=== PATIENT | male | born 1940 | race Caucasian/White ===

== ENCOUNTER 2021-08-11 13:52 | Emergency (ER) | payer MEDICARE, SELFPAY ==
[2021-08-11] VITALS (28 sets, daily range): BP systolic 149–203; BP diastolic 86–110; PULSE 82–113; RESP 7–24; TEMP 36.7–36.8; O2SAT 95–100
--- NOTE | ~2021-08-11 | CT_ITS ---
EXAMINATION: CT abdomen pelvis w con INDICATION: Abdominal pain TECHNIQUE: Computed tomographic images of the abdomen and pelvis were obtained after the administrati on of 100 cc of Omnipaque 350 intravenous contrast. The dose-length product (DLP) was 452.70 mGy-cm. Automated exposure control and iterative reconstruction technique were employed. COMPARISON: 03/30/2018 FINDINGS: The lung bases are clear. The heart size is normal. There is a small sliding hiatal hernia. Again noted is a pericardial cyst along the left posterolateral heart border. The gallbladder is radha gically absent. There is mild intrahepatic and extrahepatic biliary dilatation. The liver is normal. Punctate calcifications in an otherwise normal spleen likely represent healed granulomatous disease. The pancreas is normal. There is an 11 mm adenoma of the right adrenal gland. The left adrenal gland is unremarkable. Peripelvic cysts are noted in the kidneys. Parenchymal cysts of the kidneys measure up to 2 cm on the right. There is calcified atherosclerosis of the aorta and many of the other arteri es. No pathologically enlarged abdominal or pelvic lymph nodes are identified. There is no free intra peritoneal gas or evidence of bowel obstruction. Colonic diverticulosis is present without evidence o f diverticulitis. There is a left inguinal hernia containing fat. An intramuscular lipoma is noted in the left abdominal wall. The appendix is normal. IMPRESSION: 1. Mild intrahepatic and extrahepatic biliary dilatation, new since the prior examination but could b e related to post cholecystectomy state given relatively normal liver function tests. Reviewed, dictated and finalized at location F. CAID SERVICE COORDINATOR IMPRESSION: 1. Mild intrahepatic and extrahepatic biliary dilatation, new since the prior e xamination but could be related to post cholecystectomy state given relatively normal liver function tests.
--- NOTE | 2021-08-11 14:48 | PC.NURSE ---
PT. requesting to sit outside. Pt. placed in wheel chair and with in view.
--- NOTE | 2021-08-11 15:35 | ED.ABDPAIN ---
HPI - Abdominal Pain General Chief Complaint: Abdominal Pain Stated Complaint: ABD pain Time Seen by Provider: 08/11/21 15:23 History of Present Illness HPI narrative: 80-year-old male with history of cholecystectomy presented to the emergency department for evaluation of 2 days of nausea and diarrhea. Patient also has associated mid abdominal pain. Patient states he has had decreased p.o. intake due to the presence of nausea. Patient states his diarrhea has been nonbloody. Patient states that the abdominal pain is more mid abdominal pain. Patient denies any prior history of similar abdominal pain. Patient states he did have his gallbladder out but is unsure of why he had to have this happen. Patient denies daily alcohol use and denies any prior history of pancreatitis. Related Data Home Medications Medication Instructions Recorded Confirmed aspirin 81 mg tablet,delayed 81 mg PO DAILY 07/03/19 06/28/21 release atorvastatin 80 mg tablet 80 mg PO DAILY 07/03/19 06/28/21 clopidogrel 75 mg tablet 75 mg PO DAILY 07/03/19 06/28/21 diclofenac sodium 75 mg 75 mg PO BID PRN 07/03/19 06/28/21 tablet,delayed release gabapentin 600 mg tablet 600 mg PO TID 07/03/19 06/28/21 lisinopril 10 mg tablet 10 mg PO DAILY 07/03/19 06/28/21 metoprolol succinate 25 mg 12.5 mg PO DAILY tablet 07/03/19 06/28/21 tablet,extended release 24 hr omeprazole 20 mg capsule,delayed 20 mg PO DAILY 07/03/19 06/28/21 release finasteride 5 mg tablet 5 mg PO DAILY 01/10/20 06/28/21 tamsulosin 0.4 mg capsule 0.4 mg PO DAILY 01/10/20 06/28/21 Allergies Allergy/AdvReac Type Severity Reaction Status Date / Time Penicillins Allergy Severe turns red Verified 06/28/21 14:54 morphine Allergy Mild Vomiting Verified 06/28/21 14:54 ticagrelor Allergy Mild rash Verified 06/28/21 14:54 Review of Systems Review of Systems: CONSTITUTIONAL: Denies fever, chills, or sweats. EYES: Denies visual changes, redness, or discharge. ENT: Denies rhinorrhea, congestion, sore throat, or otalgia. CARDIOVASCULAR: Denies chest pain, palpitations, or edema. RESPIRATORY: Denies cough or dyspnea. GASTROINTESTINAL: Mid and epigastric abdominal pain with associated nausea and diarrhea. Patient also reports decreased p.o. intake GENITOURINARY: Denies dysuria or hematuria. SKIN: Denies rash or itching. MUSCULOSKELETAL: Denies back pain, joint pain, or myalgia. NEUROLOGIC: Denies headache, numbness, or weakness. PSYCHIATRIC: Denies anxiety or depression. [facility] Family History Family History Sibling Family history of malignant neoplasm of gastrointestinal tract Patient's brother is Carcinoma of colon Family history of malignant neoplasm of kidney Social History Social History Smoking status: Former smoker Second hand tobacco smoke exposure: No Smoking end date: 07/31/85 Alcohol intake: never Exam Narrative: APPEARANCE: Well appearing, no pain in distress, well-nourished. HEAD: normocephalic, atraumatic. NECK: Supple. No adenopathy, no masses. RESPIRATORY: Airway patent, respirations nonlabored. Clear to auscultation bilaterally, no rales, rhonchi, wheezing. CARDIOVASCULAR: Regular rate and rhythm without murmurs rubs or gallops. ABDOMINAL: Mid and epigastric tenderness to palpation. Normal bowel sounds. MUSCULOSKELETAL: Moves all extremities. Strength/ROM intact, No edema, No calf tenderness. NEURO: Alert. Cranial nerves II through XII intact. Good gait. Good coordination SKIN: Warm, dry. Normal Color PSYCHIATRIC: Normal affect/mood. Course Course Emergency Course: 80-year-old male presented emerged part for evaluation of abdominal pain. Labs were ordered including a lipase. Fluids were ordered for rehydration due to the patient's tachycardia. CT abdomen pelvis is also being ordered. Patient did request medications for pain control. Patient was
[2021-08-11] MEDS: SODIUM CHLORIDE 0.9% IV 1,000 ML 999 ML IV CONT (15:39)
[2021-08-11] MEDS: HYDROmorphone HCL INJ (*CRX) 1 MG/ML SYR 0.5 MG IV PUSH (15:41)
[2021-08-11] MEDS: ONDANSETRON INJ 4 MG/2 ML VIAL IV PUSH (15:41)
[2021-08-11 15:52] LABS: Basophils Absolute Auto 0.1 K/mm3 (0.0-0.1); Basophils Percent Auto 0.4 % (0.2-1.2); Eosinophils Percent Auto 0.1 % (0-4.4); Hematocrit 50.5 % (42.0-52.0); Hemoglobin 17.9 g/dL (14.0-18.0); Immature Granulocyte Absolute 0.07 K/mm3 (0.00-0.031); Immature Granulocyte Percent A 0.4 % (0-0.5); Lymphocytes Absolute Auto 2.87 K/mm3 (0.9-3.2); Lymphocytes Percent Auto 15.9 % (18.3-44.2); Mean Corpuscular HGB Conc 35.4 g/dl (32-36); Mean Corpuscular Hemoglobin 30.5 pg (26-34); Mean Platelet Volume 10.8 fl (7.4-10.4); Monocytes Absolute Auto 1.3 K/mm3 (0.1-0.6); Monocytes Percent Auto 7.3 % (2.6-8.5); Neutrophils Absolute Auto 13.8 K/mm3 (1.3-6.7); Neutrophils Percent Auto 75.9 % (45.5-73.1); Platelet Count Result 311 k/mm3 (150-375); Red Blood Count 5.87 M/mm3 (4.6-6.20); Red Cell Distribution Width 12.6 % (11.5-14.5); White Blood Count 18.1 K/mm3 (4.5-10.0)
[2021-08-11 16:12] LABS: Lipase 56 U/L (23-300)
[2021-08-11 16:13] LABS: Lactic Acid Reflex 2.6 mmol/L (0.7-2.1)
[2021-08-11 16:23] LABS: Alanine Aminotransferase 41 U/L (4-50); Alkaline Phosphatase 115 U/L (38-126); Anion Gap 16 mmol/L (8-16); Aspartate Amino Transferase 87 U/L (17-59); Bilirubin,Total 1.1 mg/dL (0.2-1.3); Blood Urea Nitrogen 17 mg/dL (9-20); Calcium 10.8 mg/dL (8.4-10.2); Carbon Dioxide 22 mmol/L (22-30); Chloride 105 mmol/L (98-107); Estimated CRCL calculation 46 ml/min; Estimated Glomerular Filt Rate 53; Glucose 133 mg/dL (65-110); Potassium 3.5 mmol/L (3.4-5.0); Sodium 143 mmol/L (137-145)
[2021-08-11] MEDS: PANTOPRAZOLE SODIUM IV 40 MG VIAL IV PUSH (17:29)
[2021-08-11] MEDS: lisinopriL 10 MG TABLET PO (18:27)
[2021-08-11] MEDS: METOPROLOL SUCCINATE EXT REL 12.5 MG TABCR PO (18:27)
[2021-08-11 18:49] LABS: Reflex Lactic Acid Yes or No Add Lactic
--- NOTE | 2021-08-14 11:43 | PC.NURSE ---
LATE ENTRY This note is being entered to document information to the patient's record. The following information was omitted on [08/11/21], by [jenn pantoja]. NS start at 1539 ended 163
== END 2021-08-11 18:45 | disposition home or self-care (01) ==
PROVIDERS: Emergency Provider Emergency Medicine; PCP Internal Medicine
DX: R19.7 Diarrhea, unspecified (principal); R11.0 Nausea; Z79.82 Long term (current) use of aspirin; Z87.891 Personal history of nicotine dependence
CPT/HCPCS: 36415; 74177; 80053; 83605; 83690; 85025; 96361; 96374; 96375; 99284; A9270; C9113; J1170; J2405; J7030; Q9967

== ENCOUNTER 2021-08-12 12:31 | Outpatient (CLI) | payer MEDICARE, SELFPAY ==
[2021-08-12 12:57] LABS: Add Urine Microscopic? YES; Appearance Urine Clear (Clear); Bacteria Urine Trace /hpf; Bilirubin Urine Negative (Negative); Blood Urine 1+ (Negative); Color Urine Yellow (Yellow); Glucose Urine UA 1+ mg/dL (Negative); Ketones Urine 1+ mg/dL (Negative); Leukocyte Esterase Ur Negative LEU/UL (NEGATIVE); Mucus Urine Heavy /lpf; Nitrate Urine Negative (Negative); Protein Urine 2+ mg/dL (Negative); Squamous Epithelial Cell Urine Rare /hpf (Few); WBC Urine 0-3 /hpf (0-3)
[2021-08-12 13:14] LABS: Specific Grav Ur 1.033 (1.001-1.035)
== END 2021-08-12 12:32 | disposition home or self-care (01) ==
LOC: ANHLAB 12:35
PROVIDERS: PCP Internal Medicine; Visit Provider Physician Assistant
DX: R41.82 Altered mental status, unspecified (principal)
CPT/HCPCS: 81001; 87086; 87088

== ENCOUNTER 2021-08-13 11:32 | Observation (INO) | payer MEDICARE, SELFPAY ==
[2021-08-13] VITALS (38 sets, daily range): BP systolic 162–192; BP diastolic 83–108; PULSE 77–120; RESP 6–23; TEMP 37–37.1; O2SAT 97–100; BMI 29.2
--- NOTE | ~2021-08-13 | CT_ITS ---
EXAMINATION: CT abdomen pelvis w con DATE: 08/13/2021 14:28 INDICATION: Acute pancreatitis. TECHNIQUE: Computed tomography (CT) of the abdomen and pelvis was performed with 100 mL Omnipaque 350 intravenous contrast. Automated exposure control and iterative reconstruction technique were employe d. The dose-length product was 500.78 mGy-cm. COMPARISON: CT abdomen and pelvis 08/11/2021 FINDINGS: The visualized portions of the lung bases are clear without pneumonia or pleural effusion. The heart size is normal. There are coronary artery calcifications. No pericardial effusion. There is a small sliding hiatal hernia. There is mild intrahepatic biliary duct dilatation, likely secondary to cholecystectomy. The pancreas, spleen, and adrenal glands are normal. There are peripelvic cysts i n the kidneys measuring up to 3.6 cm on the left. There is cortical thinning of the kidneys. There is an intramuscular lipoma in left lateral abdominal wall. There is an umbilical hernia containing fat. The prostate is moderately enlarged. There is a left inguinal hernia containing fat. There is divert iculosis of the colon without evidence of diverticulitis. The appendix is normal. There are no pathol ogically enlarged lymph nodes. There is no free intraperitoneal fluid. There are benign bone islands in the pelvis. There is mild lumbar spondylosis. IMPRESSION: 1. Normal pancreas. Reviewed, dictated and finalized at location B. ACTORY TECHNICIAN IMPRESSION: 1. Normal pancreas.
--- NOTE | ~2021-08-13 | MR_ITS ---
EXAMINATION: MR brain/brain stem wo/w con EXAM DATE: 08/14/2021 13:03 INDICATION: Confusion. TECHNIQUE: Magnetic resonance imaging (MRI) of the brain/brain stem obtained without contrast. Sagit rocco T1, axial diffusion, gradient echo (T2*), T1, T2, FLAIR sequences obtained. Patient was then inj ected with 18 cc intravenous Multihance contrast. Axial and coronal postcontrast T1 weighted sequence s obtained. Comparison is made to prior examination from 06/01/2014. FINDINGS: There are no areas of restricted diffusion to suggest acute infarction. There is no acute hemorrhage seen on the T2*, a hemosiderin sensitive sequence. No intraparenchymal brain mass lesion. Multiple right parietal lobe infarction medially. There is mild periventricular and subcortical T2 /FLAIR signal hyperintensity, nonspecific but probably related to small vessel ischemic disease (micr oangiopathy). There is mild prominence of the sulci and ventricles related to cerebral atrophy. T here are no extra-axial collections. Flow voids are seen in the cerebral arteries on the T2-weighted sequences consistent with their expected patency. The orbits are unremarkable. Soft tissue is unre markable. There are no areas of abnormal enhancement on the postcontrast images. Small right maxilla ry sinus mucous retention cyst. IMPRESSION: 1. No acute intracranial findings. 2. Chronic age related findings. 3. 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 Reviewed, dictated and finalized at location G. ORT DIRECTOR
--- NOTE | ~2021-08-13 | CT_ITS ---
EXAMINATION: CT brain wo con DATE: 08/13/2021 12:32 INDICATION: Confusion. Altered mental status. TECHNIQUE: Computed tomography (CT) of the head was performed without intravenous contrast. The mA wa s adjusted according to patient size. Iterative reconstruction technique was employed. The dose-lengt h product was 681.00 mGy-cm. COMPARISON: Head CT 02/23/2013, brain MRI 06/01/2014 FINDINGS: There are scattered areas of low attenuation in the cerebral white matter, which is within normal limits for the patient's age. There is no intracranial hemorrhage, acute infarction, or abnorm al intracranial mass lesion. The ventricles are normal in size. The orbits are normal. There is mild mucosal thickening in the paranasal sinuses. The mastoid air cells are normal. IMPRESSION: 1. Normal aging brain. Reviewed, dictated and finalized at location B. SERVICE SALES REPRESENTATIVES IMPRESSION: 1. Normal aging brain.
--- NOTE | ~2021-08-13 | US_ITS ---
EXAMINATION: US carotid duplex BI DATE: 08/13/2021 17:52 INDICATION: Confusion TECHNIQUE: Grayscale, color Doppler, and pulsed Doppler images of the cervical carotid arteries were obtained. The degree of vessel stenosis is placed in one of the following categories: normal, <50%, 5 0-69%, >=70% but less than near-occlusion, near-occlusion, or total occlusion. Note that percent sten osis relative to normal distal artery lumen diameter is indirectly measured from velocity measurement s as described by Home, et al. Radiology 2003; [id number]:340-346. COMPARISON: 10/11/2013 FINDINGS: RIGHT: The right common carotid artery (CCA) peak systolic velocity (PSV) is 88 cm/s. The right internal car otid artery (ICA) PSV is 102 cm/s. The right ICA end-diastolic velocity (EDV) is 17 cm/s. The right I CA/CCA PSV ratio is 1.2. Grayscale and color Doppler images yield an estimate of less than 50% diamet er reduction from plaque in the ICA. The external carotid artery (ECA) PSV is 135 cm/s. There is ante grade flow in the right vertebral artery. LEFT: The left CCA PSV is 93 cm/s. The left ICA PSV is 99 cm/s. The left ICA EDV is 24 cm/s. The left ICA/C CA PSV ratio is 1.1. Grayscale and color Doppler images yield an estimate of 50% diameter reduction f rom plaque in the ICA. The ECA PSV is 148 cm/s. There is antegrade flow in the left vertebral artery. IMPRESSION: 1. <50% stenosis in the right internal carotid artery. 2. <50% stenosis in the left internal carotid artery. Reviewed, dictated and finalized at location F. EXTINGUISHER REPAIRER INSPECTOR
--- NOTE | 2021-08-13 11:53 | ECG_ITS ---
Measurements Intervals [place] Rate: 91 P: 52 [place]: 100 QRS: 30 QRSD: 88 T: -6 QT: 373 QTc: 461 Interpretive Statements SINUS RHYTHM WITH SHORT [place] INTERVAL ATRIAL PREMATURE COMPLEXES EARLY PRECORDIAL R/S TRANSITION ST-T WAVE ABNORMALITY IN INFERIOR LEADS- CONSIDER ISCHEMIA BASELINE ARTIFACT- II, III, AVR, AVL, AVF, V2-V6 ABNORMAL ECG Electronically Signed On 08-13-2021 12:52:43 SHIPYARD HELPER by Delvin Schrader D.O.
[2021-08-13 12:01] LABS: Basophils Absolute Auto 0.1 K/mm3 (0.0-0.1); Basophils Percent Auto 0.6 % (0.2-1.2); Eosinophils Absolute Auto 0.1 K/mm3 (0-0.3); Eosinophils Percent Auto 0.5 % (0-4.4); Hematocrit 49.1 % (42.0-52.0); Hemoglobin 17.2 g/dL (14.0-18.0); Immature Granulocyte Absolute 0.03 K/mm3 (0.00-0.031); Immature Granulocyte Percent A 0.2 % (0-0.5); Lymphocytes Absolute Auto 2.18 K/mm3 (0.9-3.2); Lymphocytes Percent Auto 17.1 % (18.3-44.2); Mean Corpuscular Hemoglobin 30.7 pg (26-34); Mean Corpuscular Volume 87.5 fl (80-100); Mean Platelet Volume 10.4 fl (7.4-10.4); Monocytes Absolute Auto 0.8 K/mm3 (0.1-0.6); Monocytes Percent Auto 6.2 % (2.6-8.5); Neutrophils Absolute Auto 9.6 K/mm3 (1.3-6.7); Neutrophils Percent Auto 75.4 % (45.5-73.1); Platelet Count Result 246 k/mm3 (150-375); Red Blood Count 5.61 M/mm3 (4.6-6.20); Red Cell Distribution Width 12.9 % (11.5-14.5); White Blood Count 12.7 K/mm3 (4.5-10.0)
[2021-08-13 12:15] LABS: Alanine Aminotransferase 42 U/L (4-50); Albumin Level 4.5 g/dL (3.5-5.1); Alkaline Phosphatase 102 U/L (38-126); Anion Gap 12 mmol/L (8-16); Aspartate Amino Transferase 50 U/L (17-59); Bilirubin,Total 1.1 mg/dL (0.2-1.3); Blood Urea Nitrogen 19 mg/dL (9-20); Calcium 9.8 mg/dL (8.4-10.2); Carbon Dioxide 25 mmol/L (22-30); Chloride 104 mmol/L (98-107); Estimated CRCL calculation 45 ml/min; Estimated Glomerular Filt Rate 59; Glucose 124 mg/dL (65-110); Partial Thromboplastin Time 27.8 SECONDS (22.3-36.8); Potassium 3.2 mmol/L (3.4-5.0); Sodium 141 mmol/L (137-145)
--- NOTE | 2021-08-13 12:31 | ED.AMS ---
HPI - Altered Mental Status General Chief Complaint: Altered Mental Status Stated Complaint: Confusion Time Seen by Provider: 08/13/21 12:14 History of Present Illness HPI narrative: 80-year-old male present to the emergency room for evaluation of altered mental status. Patient was evaluated in the emergency department yesterday for multiple days of diarrhea and decreased p.o. intake. Patient had a negative work-up yesterday and stated he felt improved and was requesting discharge to home. Patient was brought back to the emergency department due to abnormal behavior overnight where he urinated on the floor. Grandson states that the patient's home is very disheveled and there is feces around the house. Grandson states that the patient is typically compliant with his medications but that he typically has a very poor diet. Grandson states that his diet is worse now and that he is now noncompliant with his medications for the past week. Family states that the patient is unable to take care of himself at home and they state that they are unable to care for him in their home. Patient's only complaint at this time is epigastric abdominal pain. I was the physician caring for the patient yesterday. Patient did recognize me when I walked into the room. Related Data Home Medications Medication Instructions Recorded Confirmed aspirin 81 mg tablet,delayed 81 mg PO DAILY 07/03/19 06/28/21 release atorvastatin 80 mg tablet 80 mg PO DAILY 07/03/19 06/28/21 clopidogrel 75 mg tablet 75 mg PO DAILY 07/03/19 06/28/21 diclofenac sodium 75 mg 75 mg PO BID PRN 07/03/19 06/28/21 tablet,delayed release gabapentin 600 mg tablet 600 mg PO TID 07/03/19 06/28/21 lisinopril 10 mg tablet 10 mg PO DAILY 07/03/19 06/28/21 metoprolol succinate 25 mg 12.5 mg PO DAILY tablet 07/03/19 06/28/21 tablet,extended release 24 hr omeprazole 20 mg capsule,delayed 20 mg PO DAILY 07/03/19 06/28/21 release finasteride 5 mg tablet 5 mg PO DAILY 01/10/20 06/28/21 tamsulosin 0.4 mg capsule 0.4 mg PO DAILY 01/10/20 06/28/21 Allergies Allergy/AdvReac Type Severity Reaction Status Date / Time Penicillins Allergy Severe turns red Verified 01/14/22 11:49 morphine Allergy Mild Vomiting Verified 08/13/21 11:49 ticagrelor Allergy Mild rash Verified 08/13/21 11:49 Review of Systems Review of Systems: CONSTITUTIONAL: Denies fever, chills, or sweats. EYES: Denies visual changes, redness, or discharge. ENT: Denies rhinorrhea, congestion, sore throat, or otalgia. CARDIOVASCULAR: Denies chest pain, palpitations, or edema. RESPIRATORY: Denies cough or dyspnea. GASTROINTESTINAL: Intermittent diarrhea and epigastric abdominal pain GENITOURINARY: Denies dysuria or hematuria. SKIN: Denies rash or itching. MUSCULOSKELETAL: Denies back pain, joint pain, or myalgia. NEUROLOGIC: Denies headache, numbness, or weakness. PSYCHIATRIC: Family reports increased confusion PMFSH Past Medical History Medical History (Updated 08/13/21 @ 18:54 by Pranay Lynn MD) BPH (benign prostatic hyperplasia) Depression Essential (primary) hypertension Hyperlipidemia Neuropathy Surgical History Surgical History (Updated 08/13/21 @ 14:11 by Isamar Muir NP) Hx laparoscopic cholecystectomy Hx of heart artery stent Family History Family History Sibling Family history of malignant neoplasm of gastrointestinal tract Patient's brother is Carcinoma of colon Family history of malignant neoplasm of kidney Social History Social History (Updated 08/13/21 @ 17:03 by Isamar Muir NP) Social History: The patient stated that he is . He stated that he had 1 daughter that . He lives Alone. He quit smoking 30 years ago. He admits to using marijuana. He is retired from the [employer]. During our conversation he stated that his son is calling however he could not tell me how many other children he had.
[2021-08-13 13:24] LABS: Lactic Acid Reflex 1.2 mmol/L (0.7-2.1)
[2021-08-13] MEDS: BELLADONNA ALK/PHENOB ELIX 10 ML, MAG HYDROX/ALUMINUM HYD/SIMETH 30 ML, LIDOCAINE HCL 2... PO (13:32)
[2021-08-13] MEDS: SODIUM CHLORIDE 0.9% IV 1,000 ML 999 ML IV CONT ×2 (13:33→13:53)
[2021-08-13 13:36] LABS: Lipase 1057 U/L (23-300)
--- NOTE | 2021-08-13 14:08 | PM.IMHP ---
H&P: HPI History of Present Illness Date/Time: 08/13/21 14:08 this is a 80-year-old male patient who came to the emergency room today for evaluation of altered mental status. The patient had been in the emergency room here yesterday due to having diarrhea for multiple days and decreased oral intake. The patient had a negative workup yesterday and felt that his symptoms had improved and was requesting to go home yesterday. Patient was brought back to the emergency room due to his abnormal behavior overnight. The patient had been urinating on the floor. The patient is unable to answer any questions. The grandson stated that the patient's home was very disarray and there was feces found on the floor at the patient's house. The patient has had a poor appetite in and is questionable whether the patient has been taking his medications. When I am asking the patient history questions he keeps telling me that he does not recall he does not remember. The patient is also very hard of hearing. He is having difficulty hearing me through the admission process. The patient started crying during the interview talking about how his daughter 2 years ago and his 10 years ago. The patient does have a history of depression however is questionable whether not the patient has been taking his medication at home. The patient is not aware of which medications he is on or when he is supposed to take them. His white count was noted to be 12.7 which is down from 18.1 two days ago. The patient has been complaining of having some right upper quadrant discomfort and has a history of having a cholecystectomy. Patient denies any nausea vomiting. The patient admits to smoking marijuana and states that he wishes he had some right now. Patient's lipase was noted to be 1057. Patient's COVID swab was negative today. Head CT shows a normal aging brain. Repeat abdominal pelvis CT was read as normal pancreas. The patient was given a GI cocktail which offered some relief. Patient was started on IV fluids. The patient is being admitted to observation on the date of service of 08/13/2021. Chief Complaint: confused Review of Systems Review of Systems: All systems reviewed & are unremarkable except as noted in HPI and below Constitutional: Constitutional: Reports as per HPI and Reports no additional constitutional complaints Eyes: Eyes: Reports as per HPI and Reports no additional eye complaints ENT: Reports system reviewed and no additional complaints, except as documented and Reports Normal hearing present Cardiovascular: Cardiovascular: Reports no additional cardiovascular complaints Respiratory: Respiratory: Reports no additional respiratory complaints and Reports no additional respiratory complaints Gastrointestinal: Gastrointestinal: Reports as per HPI and Reports no additional gastrointestinal complaints Musculoskeletal: Musculoskeletal: Reports no additional musculoskeletal complaints Integumentary/Breasts: Skin/Breast: Reports system reviewed and no additional complaints, except as docu and Reports as per HPI Neurologic: Reports system reviewed and no additional complaints, except as documented, Reports as per HPI and Reports Normal hearing present Psychiatric: Psychiatric: Reports no additional psychiatric complaints and Reports as per HPI Endocrine: Endocrine: Reports no additional endocrine complaints Hematologic/Lymphatic: Hematologic/Lymphatic: Reports no additional hematologic/lymphatic complaints Allergic/Immunologic: Allergic/Immunologic: Reports no additional allergic/immunologic complaints PMFSH Past Medical History Medical History (Updated 08/13/21 @ 17:16 by Isamar Muir NP) BPH (benign prostatic hyperplasia) Depression Essential (primary) hypertension Hyperlipidemia Neuropathy Surgical History Surgical History (Updated 08/13/21 @ 14:11 by Isamar Muir NP) Hx laparoscopic cholecystectomy Hx of heart artery stent
[2021-08-13 15:29] LABS: SARS-CoV-2 RNA PCR Negative
[2021-08-13 16:02] LABS: Add Urine Microscopic? YES; Appearance Urine Clear (Clear); Bilirubin Urine Negative (Negative); Blood Urine 1+ (Negative); Color Urine Yellow (Yellow); Glucose Urine UA 1+ mg/dL (Negative); Ketones Urine 1+ mg/dL (Negative); Leukocyte Esterase Ur Negative LEU/UL (Negative); Mucus Urine Rare /lpf; Nitrate Urine Negative (Negative); Protein Urine Negative (Negative); RBC Urine 0-2 /hpf (0-2); Squamous Epithelial Cell Urine Rare /hpf (Few); Urobilinogen Urine Negative mg/dL (<2.0); WBC Urine 0-3 /hpf
[2021-08-13 17:09] LABS: Amphetamine Screen Urine Negative (Negative); Barbiturate Screen Urine Negative (Negative); Benzodiazepines Screen Urine Negative (Negative); Cannabinoid Screen Urine Positive (Negative); Cocaine Screen Urine Negative (Negative); Methadone Screen Urine Negative (Negative); Opiate Screen Urine Negative (Negative); Phencyclidine Screen Urine Negative (Negative)
--- NOTE | 2021-08-13 18:00 | PC.NURSE ---
bp trending high. pt states has not taken his home meds in 2-3 days. meds ordered per verbal order from dr. weber
[2021-08-13] MEDS: lisinopriL 20 MG TABLET PO (18:15)
--- NOTE | 2021-08-13 18:53 | PC.NURSE ---
This patient, Gustavo Don, was admitted to Medical Room 244-. Patient/family oriented to hospital policies and general routines including ID bracelet, bed and alarms, visiting hours, pain management, procedures, bathroom and other care routines, personal items, smoking policy, room service/diet, and visiting hours. Information on how to activate the Rapid Response Team has been discussed. Patient/Family are encouraged to report perceived risks to care and to ask questions if they do not understand what they are told or what they should do.
[2021-08-13] MEDS: SODIUM CHLORIDE 0.9% IV 1,000 ML 125 ML IV CONT (19:00)
[2021-08-13] MEDS: FAMOTIDINE 20 MG/2 ML VIAL IV PUSH (19:40)
[2021-08-13] MEDS: METOPROLOL TARTRATE 12.5 MG TABLET PO (19:40)
[2021-08-13] MEDS: LIDOCAINE HCL 2% GEL UROJET 10 ML PKG MUCOUS MEM (22:38)
[2021-08-13] MEDS: PHENAZOPYRIDINE HCL 100 MG TABLET PO (22:38)
[2021-08-14] VITALS (9 sets, daily range): BP systolic 102–167; BP diastolic 57–82; PULSE 68–84; RESP 12–18; TEMP 36.6–36.8; O2SAT 99
--- NOTE | 2021-08-14 | ECHO_ITS ---
Patient Info Name: Gustavo Don Age: 80 years : 1940 Gender: Male Ht: 69 in Wt: 198 lbs BSA: 2.11 m2 HR: 84 bpm BP: 167 / 78 mmHg Heart Rhythm: Sinus Rhythm Technical Quality: Good Exam Date: 08/14/2021 7:57 AM Exam Location: [facility] Room: 244 Patient Status: Outpatient Admit Date: 08/13/2021 Staff Ordering Physician: Isamar Muir NP Head Strength And Conditioning Coach: Eusebia Kenny RDCS Attending Provider: Bill Quinteros M.A., MD Referring Physician: Wood MADDEN; Exam Type: CA echo doppler color flow Study Info Indications - AMS CONFUSION Complete two-dimensional, color flow and Doppler transthoracic echocardiogram is performed. Summary 1. Complete two-dimensional, color flow and Doppler transthoracic echocardiogram is performed. 2. Normal left ventricular size with mild concentric hypertrophy. Hyperdynamic left ventricular systolic function with ejection fraction 71%. No focal wall motion abnormalities. Diastolic dysfunction grade 1 is present. 3. Left atrial chamber dimension is mildly enlarged. 4. Moderate pulmonary hypertension, estimated pulmonary arterial systolic pressure is 48 mmHg. 5. No significant valve disease. 6. Normal sinus rhythm. Left Ventricle Left ventricular chamber dimension is normal. Left ventricular systolic function is normal, estimated at >70%. There is mildly increased left ventricular wall thickness. Left ventricular septal wall motion is normal. The left ventricular diastolic function is grade I diastolic dysfunction. Right Ventricle Right ventricular chamber dimension is normal. Right ventricular systolic function is normal. Left Atria Left atrial chamber dimension is mildly enlarged. Right Atria Right atrial chamber dimension is normal. Aortic Valve The aortic valve is trileaflet. There is no aortic valve sclerosis. There is no aortic valve stenosis. There is no aortic valve regurgitation. Pulmonic Valve The pulmonic valve is normal. There is no pulmonic valve stenosis. There is no pulmonic regurgitation. Mitral Valve The mitral valve has normal leaflets. There is no mitral valve stenosis. There is trace mitral valve regurgitation. Tricuspid Valve The tricuspid valve leaflets are normal. There is no significant tricuspid valve stenosis. There is trace tricuspid valve regurgitation. Moderate pulmonary hypertension, estimated pulmonary arterial systolic pressure is 48 mmHg. Pericardium/Pleural The pericardium appears normal. There is no pericardial effusion. Inferior Vena Cava Normal inferior vena cava with >50% collapse upon inspiration consistent with Empty right atrial pressure, 10 mmHg. Aorta The aortic root size at the sinus of Valsalva is normal. The prox ascending aorta size is normal. Left Ventricular Outflow Tract Name Value Normal LVOT 2D LVOT Diameter 2.0 cm LVOT Doppler LVOT Peak Gradient 6 mmHg LVOT Mean Gradient 4 mmHg LVOT VTI 27 cm LVOT VTI/AV VTI Ratio 0.8
--- NOTE | 2021-08-14 04:27 | PC.NURSE ---
08/13/212014 patient repeatedly out of bed attempting to urinate, crying that it moreno and he is unable to void.
--- NOTE | 2021-08-14 04:29 | PC.NURSE ---
08/13/212199 after many attempt to void, crying and climbing oob, called Isamar Muir for orders for rogers catheter and pyridium
--- NOTE | 2021-08-14 04:30 | PC.NURSE ---
08/14/21 0015 patient calm and resting at present
[2021-08-14 06:01] LABS: Basophils Absolute Auto 0.1 K/mm3 (0.0-0.1); Basophils Percent Auto 0.4 % (0.2-1.2); Eosinophils Absolute Auto 0.1 K/mm3 (0-0.3); Eosinophils Percent Auto 0.7 % (0-4.4); Hematocrit 44.4 % (42.0-52.0); Hemoglobin 15.4 g/dL (14.0-18.0); Immature Granulocyte Absolute 0.07 K/mm3 (0.00-0.031); Immature Granulocyte Percent A 0.5 % (0-0.5); Lymphocytes Absolute Auto 1.91 K/mm3 (0.9-3.2); Lymphocytes Percent Auto 14.1 % (18.3-44.2); Mean Corpuscular HGB Conc 34.7 g/dl (32-36); Mean Corpuscular Hemoglobin 30.6 pg (26-34); Mean Corpuscular Volume 88.1 fl (80-100); Mean Platelet Volume 10.8 fl (7.4-10.4); Monocytes Percent Auto 7.1 % (2.6-8.5); Neutrophils Absolute Auto 10.4 K/mm3 (1.3-6.7); Neutrophils Percent Auto 77.2 % (45.5-73.1); Platelet Count Result 194 k/mm3 (150-375); Red Blood Count 5.04 M/mm3 (4.6-6.20); Red Cell Distribution Width 12.8 % (11.5-14.5); White Blood Count 13.5 K/mm3 (4.5-10.0)
[2021-08-14] MEDS: SODIUM CHLORIDE 0.9% IV 1,000 ML 125 ML IV CONT ×2 (06:03→12:37)
[2021-08-14 06:31] LABS: Albumin Level 3.9 g/dL (3.5-5.1); Anion Gap 12 mmol/L (8-16); Blood Urea Nitrogen 13 mg/dL (9-20); Calcium 8.8 mg/dL (8.4-10.2); Carbon Dioxide 22 mmol/L (22-30); Chloride 108 mmol/L (98-107); Estimated CRCL calculation 59 ml/min; Estimated Glomerular Filt Rate > 60; Glucose 83 mg/dL (65-110); Lactate Dehydrogenase 524 U/L (313-618); Lipase 142 U/L (23-300); Magnesium 1.9 mg/dL (1.6-2.3); Phosphorus 2.8 mg/dL (2.5-4.5); Potassium 2.9 mmol/L (3.4-5.0); Sodium 142 mmol/L (137-145)
[2021-08-14 06:51] LABS: Thyroid Stimulating Hormone Reflex 0.603 uIU/mL (0.465-4.68)
--- NOTE | 2021-08-14 07:26 | WPDGICN ---
Assessment and Plan Assessment and plan (1) Acute pancreatitis: Qualifiers: Acute pancreatitis complication: unspecified Pancreatitis type: unspecified pancreatitis type Qualified Code(s): K85.90 - Acute pancreatitis without necrosis or infection, unspecified Code(s): K85.90 - Acute pancreatitis without necrosis or infection, unspecified Status: Acute Assessment and Plan: although his lipase is normal, the CT scan is unremarkable. Lipase can be elevated with other gastrointestinal processes such as ileus, vomiting. We will follow course of that. I will try him on a clear liquid diet. Likely EGD on Monday (2) Altered mental status: Code(s): R41.82 - Altered mental status, unspecified Status: Acute Assessment and Plan: It seems that he is much more lucid today than yesterday judging by the notes from the emergency room physician and admitting hospitalist (3) Diarrhea: Qualifiers: Diarrhea type: unspecified type Qualified Code(s): R19.7 - Diarrhea, unspecified Code(s): R19.7 - Diarrhea, unspecified Status: Acute Assessment and Plan: he cannot recall when this began. I will obtain stool studies if he has any further diarrhea. (4) Depression: Code(s): F32.9 - Major depressive disorder, single episode, unspecified Status: Chronic Assessment and Plan: Unfortunately he stopped taking his medication 2 weeks ago. He states he cannot remember why but he simply forgot to take it GI Consult Note Consult date/time: 08/14/21 07:26 HPI: Gustavo Don is a 80 year old male who was admitted yesterday to the emergency room. He was brought here because of mental status changes. His family had noted that his house was very messy and affect there was fecal material on the floor. I asked the patient about this he does not recall that. He admits that he has not felt like eating much lately but he denies vomiting. The patient admitted to me today that he had somehow stopped taking his medicine about 2 weeks ago. He explained he always took 5 meds in the morning and 5 in the evening . He states that he cannot explain why he stopped taking his meds. The patient was given a GI cocktail emergency room which did help somewhat. CT was unremarkable but lipase was elevated. He denies any prior history of pancreatic disease or liver disease. It had a colonoscopy 5 years ago by , for follow-up of polyps. That exam was normal except that there was diverticulosis and a previous tattoo in the transverse colon. I do not see that he has had an EGD any time in the recent past. He takes aspirin and also diclofenac which may be a factor In his gastrointestinal complaints. He apparently was quite confused yesterday. Today he is fairly lucid recalling that he had gone to the emergency room 2 days ago with diarrhea. He was sent home and then as noted above he returned yesterday Review of Systems Review of Systems: All systems reviewed & are unremarkable except as noted in HPI and below PMFSH Past Medical History Medical History BPH (benign prostatic hyperplasia) Depression Essential (primary) hypertension Hyperlipidemia Neuropathy Surgical History Surgical History Hx laparoscopic cholecystectomy Hx of heart artery stent Family History Family History Sibling Family history of malignant neoplasm of gastrointestinal tract Patient's brother is Carcinoma of colon Family history of malignant neoplasm of kidney Social History Social History Social History: The patient stated that he is . He stated that he had 1 daughter that . He lives Alone. He quit smoking 30 years ago. He admits to using
[2021-08-14] MEDS: POTASSIUM CHLORIDE 20 MEQ TABLET 40 MEQ PO ×2 (10:35→13:26)
[2021-08-14] MEDS: FAMOTIDINE 20 MG/2 ML VIAL IV PUSH ×2 (10:36→20:04)
[2021-08-14] MEDS: lisinopriL 20 MG TABLET PO (10:37)
[2021-08-14] MEDS: PHENAZOPYRIDINE HCL 100 MG TABLET PO ×3 (10:37→16:37)
[2021-08-14] MEDS: TAMSULOSIN HCL 0.4 MG CAPSULE PO ×2 (10:38→15:53)
[2021-08-14] MEDS: PANTOPRAZOLE 40 MG TABLET PO (10:39)
[2021-08-14] MEDS: CITALOPRAM HYDROBROMIDE 20 MG TABLET 40 MG PO (10:39)
[2021-08-14] MEDS: METOPROLOL SUCCINATE EXT REL 12.5 MG TABCR PO (10:39)
--- NOTE | 2021-08-14 12:25 | PM.IMPN ---
Progress Note: A&P Assessment and Plan (1) Encephalopathy: Code(s): G93.40 - Encephalopathy, unspecified Status: Acute Assessment and Plan: Carotid Dopplers negative. CT brain negative. 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 Suspect encephalopathy due to acute gastrointestinal illness with nausea vomiting and diarrhea, likely gastroenteritis, with associated mild dehydration and baseline polypharmacy. Continue with IV fluid for hydration Address hypokalemia with p.o. and IV supplementation (2) Essential (primary) hypertension: Code(s): I10 - Essential (primary) hypertension Status: Chronic Assessment and Plan: Continue with home medications. It looks like the patient may be on lisinopril metoprolol. (3) BPH (benign prostatic hyperplasia): Code(s): N40.0 - Benign prostatic hyperplasia without lower urinary tract symptoms Status: Chronic Assessment and Plan: Continue with home medications. Looks like the patient may be on tamsulosin and finasteride. (4) Hyperlipidemia: Code(s): E78.5 - Hyperlipidemia, unspecified Status: Chronic Assessment and Plan: Continue with atorvastatin (5) Neuropathy: Code(s): G62.9 - Polyneuropathy, unspecified Status: Chronic Assessment and Plan: Holding gabapentin (6) Depression: Code(s): F32.9 - Major depressive disorder, single episode, unspecified Status: Chronic Assessment and Plan: Home medications show both citalopram and venlafaxine at fairly high doses (40mg and 150mg, respectively) Will continue citalopram but hold the venlafaxine Follow-up with PCP or psychiatrist to discuss long-term dosing (7) Acute pancreatitis: Qualifiers: Acute pancreatitis complication: unspecified Pancreatitis type: unspecified pancreatitis type Qualified Code(s): K85.90 - Acute pancreatitis without necrosis or infection, unspecified Code(s): K85.90 - Acute pancreatitis without necrosis or infection, unspecified Status: Acute Assessment and Plan: CT abdomen pelvis negative. Elevated lipase likely due to vomiting. No clinical or imaging evidence of acute pancreatitis otherwise (8) CAD (coronary artery disease): Code(s): I25.10 - Atherosclerotic heart disease of [place] coronary artery without angina pectoris Status: Acute Assessment and Plan: History of 2 cardiac stents in the past Currently without angina Continue home regimen (9) Acute urinary retention: Code(s): R33.8 - Other retention of urine Status: Acute Assessment and Plan: Continue Kaur catheter 08/14 resumed finasteride and tamsulosin with increase in the latter to b.i.d. Consider voiding trial prior to discharge Subjective Date/time seen: 08/14/21 12:25 Interval history: 08/14 visit: Dysuria last evening. Could urinate. Kaur catheter inserted. Had been off his tamsulosin and finasteride. Still with a little diarrhea. Tolerating clear liquids. Denied pain shortness of breath bleeding. Wants to go home soon Review of Systems Review of Systems: All systems reviewed & are unremarkable except as noted in HPI and below Exam Narrative: HEENT: PERRL, sclerae nonicteric, pharyngeal mucosa pink and intact NECK: No JVD CHEST: Clear to auscultation. Normal effort. HEART: NL S1/S2, regular, no murmur ABDOMEN: BS+, soft, nontender, no mass, no bruits EXTREMITIES: No cyanosis, edema, or clubbing NEUROLOGIC: CN intact and symmetric to inspection. MUSCULOSKELETAL: Tone and strength symmetric. PSYCH: Alert. Oriented to person, place, and time. Objective Data Vital Signs Vital Signs: Vital Signs - 24 hr 08/13/21 12:34 08/13/21 13:31 08/13/21 13:58 Temperature Pulse Rate 92 77 Respiratory Rate 23 H 18 Blood Pressure Pulse Oximetry 99 08/13/21 14:00 08/13/21 14:29 08/13/21 14:30 Temperature Pulse Rate 86 93 89 Respiratory Rate 18
[2021-08-15 03:16] VITALS: BP 150/84; PULSE 78; RESP 17; TEMP 37.1; O2SAT 97
[2021-08-15 05:49] LABS: Anion Gap 7 mmol/L (8-16); Blood Urea Nitrogen 9 mg/dL (9-20); Calcium 9.1 mg/dL (8.4-10.2); Carbon Dioxide 24 mmol/L (22-30); Chloride 109 mmol/L (98-107); Estimated CRCL calculation 54 ml/min; Estimated Glomerular Filt Rate > 60; Glucose 117 mg/dL (65-110); Potassium 3.4 mmol/L (3.4-5.0); Sodium 140 mmol/L (137-145)
[2021-08-15] MEDS: PANTOPRAZOLE 40 MG TABLET PO (09:13)
[2021-08-15] MEDS: CITALOPRAM HYDROBROMIDE 20 MG TABLET 40 MG PO (09:13)
[2021-08-15 09:14] VITALS: PULSE 82
[2021-08-15] MEDS: lisinopriL 20 MG TABLET PO (09:14)
[2021-08-15] MEDS: ATORVASTATIN 40 MG TABLET 80 MG PO (09:14)
[2021-08-15] MEDS: METOPROLOL SUCCINATE EXT REL 12.5 MG TABCR PO (09:14)
[2021-08-15] MEDS: FAMOTIDINE 20 MG/2 ML VIAL IV PUSH ×2 (09:14→20:25)
[2021-08-15] MEDS: PHENAZOPYRIDINE HCL 100 MG TABLET PO ×3 (09:14→16:50)
[2021-08-15] MEDS: TAMSULOSIN HCL 0.4 MG CAPSULE PO (09:14)
[2021-08-15] MEDS: FINASTERIDE 5 MG TABLET PO (09:14)
--- NOTE | 2021-08-15 10:56 | WPDGIPROGNO ---
Progress Note: A&P Assessment and Plan (1) Acute pancreatitis: Qualifiers: Acute pancreatitis complication: unspecified Pancreatitis type: unspecified pancreatitis type Qualified Code(s): K85.90 - Acute pancreatitis without necrosis or infection, unspecified Code(s): K85.90 - Acute pancreatitis without necrosis or infection, unspecified Status: Acute Assessment and Plan: the lipase is now down to normal. I will try him on a clear liquid diet. Likely EGD on Monday (2) Altered mental status: Code(s): R41.82 - Altered mental status, unspecified Status: Acute Assessment and Plan: His mental status is much better than on admission (3) Diarrhea: Qualifiers: Diarrhea type: unspecified type Qualified Code(s): R19.7 - Diarrhea, unspecified Code(s): R19.7 - Diarrhea, unspecified Status: Acute Assessment and Plan: he cannot recall when this began. I will obtain stool studies if he has any further diarrhea. (4) Depression: Code(s): F32.9 - Major depressive disorder, single episode, unspecified Status: Chronic Assessment and Plan: Unfortunately he stopped taking his medication 2 weeks ago. He states he cannot remember why but he simply forgot to take it Subjective Date/time seen: 08/15/21 10:56 Interval history: 08/14 visit: Kaur catheter was placed last night due to urination problems. He is tolerating liquids. He again stated he has simply not felt like eating lately Review of Systems Review of Systems: All systems reviewed & are unremarkable except as noted in HPI and below Exam Const: General: alert Orientation/consciousness: patient oriented x3 Resp: Auscultation: clear to auscultation bilaterally Cardio: Rhythm: regular rhythm GI: Auscultation: normal bowel sounds Neuro: General: patient oriented x3 Objective Data Vital Signs Vital Signs: Vital Signs - 24 hr 08/14/21 12:00 08/14/21 14:50 08/14/21 19:12 Temperature 36.6 C 36.6 C Pulse Rate 84 84 68 Respiratory Rate 12 18 Blood Pressure 146/70 H 102/57 L Pulse Oximetry 99 99 08/15/21 03:16 08/15/21 09:14 Temperature 37.1 C Pulse Rate 78 82 Respiratory Rate 17 Blood Pressure 150/84 H Pulse Oximetry 97 Intake/Output Intake/Output: Intake & Output 08/12/21 08/13/21 08/14/21 08/15/21 23:59 23:59 23:59 23:59 Intake Total 1999 2573 1200 Output Total 1823 450 Balance 1999 888 690 Meds/Results Medications: Active Medications Generic Name Dose Route Start Last Admin Trade Name Freq PRN Reason Stop Dose Admin Atorvastatin Calcium 80 mg 08/15/21 09:00 08/15/21 09:14 Atorvastatin 40 Mg Tablet PO 80 mg DAILY JOSE Administration Citalopram Hydrobromide 40 mg 08/14/21 09:00 08/15/21 09:13 Citalopram Hydrobromide 20 Mg Tablet PO 40 mg DAILY JOSE Administration Famotidine 20 mg 08/13/21 21:00 08/15/21 09:14 Famotidine 20 Mg/2 Ml Vial IV PUSH 20 mg Q12HR JOSE Administration Finasteride 5 mg 08/15/21 09:00 08/15/21 09:14 Finasteride 5 Mg Tablet PO 5 mg DAILY JOSE Administration Potassium Cl/Dextrose/Lact Ringer's 1,000 mls @ 90 mls/hr 08/14/21 14:00 08/15/21 00:46 Kcl 20 Meq/D5lr IV CONT 90 mls/hr .Q11H7M JOSE Administration Lisinopril 20 mg 08/14/21 09:00 08/15/21 09:14 Lisinopril 20 Mg Tablet PO 20 mg DAILY JOSE Administration Metoprolol Succinate 12.5 mg 08/14/21 09:00 08/15/21 09:14 Metoprolol Succinate Ext Rel 12.5 Mg Tabcr PO 12.5 mg DAILY JOSE Administration Ondansetron HCl 4 mg 08/13/21 17:06 Ondansetron Inj 4 Mg/2 Ml Vial IV PUSH Q4H PRN nausea Pantoprazole Sodium 40 mg 08/14/21 09:00 08/15/21 09:13 Pantoprazole 40 Mg Tablet PO 40 mg DAILY JOSE Administration Phenazopyridine HCl 100 mg 08/13/21 22:19 08/15/21 09:14 Phenazopyridine Hcl 100 Mg Tablet PO 100 mg TID JOSE Administration Tamsulosin
[2021-08-15 14:20] VITALS: BP 123/55; PULSE 83; RESP 20; TEMP 36.6; O2SAT 96
--- NOTE | 2021-08-15 16:30 | PM.DS ---
DS: Admitting Diagnosis Discharge Date Patient was seen and examined on August 15, 2021 Admitting Diagnosis Acute nausea vomiting and diarrhea with acute confusion DS: Discharge Diagnosis Discharge Diagnosis (1) Diarrhea: Qualifiers: Diarrhea type: unspecified type Qualified Code(s): R19.7 - Diarrhea, unspecified Code(s): R19.7 - Diarrhea, unspecified Status: Acute (2) Nausea: Code(s): R11.0 - Nausea Status: Acute (3) Altered mental status: Code(s): R41.82 - Altered mental status, unspecified Status: Acute (4) Acute pancreatitis: Qualifiers: Acute pancreatitis complication: unspecified Pancreatitis type: unspecified pancreatitis type Qualified Code(s): K85.90 - Acute pancreatitis without necrosis or infection, unspecified Code(s): K85.90 - Acute pancreatitis without necrosis or infection, unspecified Status: Acute Assessment and Plan: CT abdomen pelvis negative. Elevated lipase likely due to vomiting. No clinical or imaging evidence of acute pancreatitis otherwise Lipase normalized by day 2 (5) Depression: Code(s): F32.9 - Major depressive disorder, single episode, unspecified Status: Chronic Assessment and Plan: Home medications show both citalopram and venlafaxine at fairly high doses (40mg and 150mg, respectively) Though he states he stopped taking both recently Will continue citalopram but hold the venlafaxine Follow-up with PCP or psychiatrist to discuss long-term dosing (6) Neuropathy: Code(s): G62.9 - Polyneuropathy, unspecified Status: Chronic Assessment and Plan: Continue gabapentin (7) Essential (primary) hypertension: Code(s): I10 - Essential (primary) hypertension Status: Chronic Assessment and Plan: Continue with home medications. BP adequately controlled 08/15 (8) BPH (benign prostatic hyperplasia): Code(s): N40.0 - Benign prostatic hyperplasia without lower urinary tract symptoms Status: Chronic Assessment and Plan: Continue tamsulosin and finasteride Episode of acute urinary retention resolved (9) CAD (coronary artery disease): Code(s): I25.10 - Atherosclerotic heart disease of [place] coronary artery without angina pectoris Status: Acute Assessment and Plan: History of 2 cardiac stents in the past Currently without angina Continue home regimen (10) Gastro-esophageal reflux disease without esophagitis: Code(s): K21.9 - Gastro-esophageal reflux disease without esophagitis Status: Acute (11) Encephalopathy: Code(s): G93.40 - Encephalopathy, unspecified Status: Acute Assessment and Plan: Carotid Dopplers negative. CT brain negative. 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 Suspect encephalopathy due to acute gastrointestinal illness with nausea vomiting and diarrhea, likely gastroenteritis, with associated mild dehydration and baseline polypharmacy. Continue with IV fluid for hydration Address hypokalemia with p.o. and IV supplementation (12) Hyperlipidemia: Code(s): E78.5 - Hyperlipidemia, unspecified Status: Chronic Assessment and Plan: Continue with atorvastatin (13) Acute urinary retention: Code(s): R33.8 - Other retention of urine Status: Acute Assessment and Plan: Continue Kaur catheter 08/14 resumed finasteride and tamsulosin with increase in the latter to b.i.d. Consider voiding trial prior to discharge DS: Summary Hospital Course Reason for hospitalization: Confusion Hospital Course: Admitted with nausea vomiting diarrhea. Amylase initially elevated but normalized within [address] abdomen pelvis showed no evidence for acute pancreatitis or other acute intra-abdominal abnormality. Patient was treated symptomatically of IV fluids. He admitted to noncompliance with medications at home. During hospitalization and acute urinary r
--- NOTE | 2021-08-15 17:41 | PM.IMPN ---
Progress Note: A&P Assessment and Plan (1) Diarrhea: Qualifiers: Diarrhea type: unspecified type Qualified Code(s): R19.7 - Diarrhea, unspecified Code(s): R19.7 - Diarrhea, unspecified Status: Acute Assessment and Plan: Resolving (2) Nausea: Code(s): R11.0 - Nausea Status: Acute Assessment and Plan: Resolved (3) Altered mental status: Code(s): R41.82 - Altered mental status, unspecified Status: Acute Assessment and Plan: Resolved (4) Acute pancreatitis: Qualifiers: Acute pancreatitis complication: unspecified Pancreatitis type: unspecified pancreatitis type Qualified Code(s): K85.90 - Acute pancreatitis without necrosis or infection, unspecified Code(s): K85.90 - Acute pancreatitis without necrosis or infection, unspecified Status: Acute Assessment and Plan: CT abdomen pelvis negative. Elevated lipase likely due to vomiting. No clinical or imaging evidence of acute pancreatitis otherwise Lipase normalized by day 2 (5) Depression: Code(s): F32.9 - Major depressive disorder, single episode, unspecified Status: Chronic Assessment and Plan: Home medications show both citalopram and venlafaxine at fairly high doses (40mg and 150mg, respectively) Though he states he stopped taking both recently Will continue citalopram but hold the venlafaxine Follow-up with PCP or psychiatrist to discuss long-term dosing (6) Neuropathy: Code(s): G62.9 - Polyneuropathy, unspecified Status: Chronic Assessment and Plan: Continue gabapentin (7) Essential (primary) hypertension: Code(s): I10 - Essential (primary) hypertension Status: Chronic Assessment and Plan: Continue with home medications. BP adequately controlled 08/15 (8) BPH (benign prostatic hyperplasia): Code(s): N40.0 - Benign prostatic hyperplasia without lower urinary tract symptoms Status: Chronic Assessment and Plan: Continue tamsulosin and finasteride Episode of acute urinary retention resolved (9) CAD (coronary artery disease): Code(s): I25.10 - Atherosclerotic heart disease of [place] coronary artery without angina pectoris Status: Acute Assessment and Plan: History of 2 cardiac stents in the past Currently without angina Continue home regimen (10) Gastro-esophageal reflux disease without esophagitis: Code(s): K21.9 - Gastro-esophageal reflux disease without esophagitis Status: Acute (11) Encephalopathy: Code(s): G93.40 - Encephalopathy, unspecified Status: Acute Assessment and Plan: Carotid Dopplers negative. CT brain negative. 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 Suspect encephalopathy due to acute gastrointestinal illness with nausea vomiting and diarrhea, likely gastroenteritis, with associated mild dehydration and baseline polypharmacy. Continue with IV fluid for hydration Address hypokalemia with p.o. and IV supplementation (12) Hyperlipidemia: Code(s): E78.5 - Hyperlipidemia, unspecified Status: Chronic Assessment and Plan: Continue with atorvastatin (13) Acute urinary retention: Code(s): R33.8 - Other retention of urine Status: Acute Assessment and Plan: Continue Kaur catheter 08/14 resumed finasteride and tamsulosin with increase in the latter to b.i.d. Consider voiding trial prior to discharge Subjective Date/time seen: 08/15/21 17:41 Interval history: 08/15 visit: Wished to try voiding trial and was able to urinate after Kaur was removed. Tolerated okay meal. Walked around the nurse's station. Wished to go home. However GI wished to have him stay overnight for an EGD in the morning. His daughter talked him into staying. Discharge was canceled. He did have 1 episode of loose stool earlier today. No abdominal pain nausea vomiting or bleeding. Review of Systems Review
[2021-08-15 19:40] VITALS: BP 144/58; PULSE 80; RESP 17; TEMP 36.6; O2SAT 98
[2021-08-15 20:00] VITALS: PULSE 80; RESP 17; O2SAT 98
[2021-08-16] VITALS (8 sets, daily range): BP systolic 110–166; BP diastolic 55–95; PULSE 68–82; RESP 16–20; TEMP 36.4–36.6; O2SAT 95–99
[2021-08-16 07:56] LABS: Hematocrit 39.5 % (42.0-52.0); Hemoglobin 13.8 g/dL (14.0-18.0); Mean Corpuscular HGB Conc 34.9 g/dl (32-36); Mean Corpuscular Volume 88.8 fl (80-100); Mean Platelet Volume 10.7 fl (7.4-10.4); Platelet Count Result 176 k/mm3 (150-375); Red Blood Count 4.45 M/mm3 (4.6-6.20); Red Cell Distribution Width 12.8 % (11.5-14.5); White Blood Count 8.8 K/mm3 (4.5-10.0)
[2021-08-16 08:04] LABS: Anion Gap 5 mmol/L (8-16); Blood Urea Nitrogen 8 mg/dL (9-20); Calcium 9.1 mg/dL (8.4-10.2); Carbon Dioxide 27 mmol/L (22-30); Chloride 107 mmol/L (98-107); Estimated CRCL calculation 54 ml/min; Estimated Glomerular Filt Rate > 60; Glucose 109 mg/dL (65-110); Potassium 3.5 mmol/L (3.4-5.0); Sodium 139 mmol/L (137-145)
[2021-08-16] MEDS: PHENAZOPYRIDINE HCL 100 MG TABLET PO ×2 (09:58→14:32)
[2021-08-16] MEDS: TAMSULOSIN HCL 0.4 MG CAPSULE PO (09:58)
[2021-08-16] MEDS: FINASTERIDE 5 MG TABLET PO (09:59)
[2021-08-16] MEDS: METOPROLOL SUCCINATE EXT REL 12.5 MG TABCR PO (09:59)
[2021-08-16] MEDS: ATORVASTATIN 40 MG TABLET 80 MG PO (09:59)
[2021-08-16] MEDS: CITALOPRAM HYDROBROMIDE 20 MG TABLET 40 MG PO (09:59)
[2021-08-16] MEDS: PANTOPRAZOLE 40 MG TABLET PO (09:59)
[2021-08-16] MEDS: lisinopriL 20 MG TABLET PO (09:59)
[2021-08-16] MEDS: FAMOTIDINE 20 MG/2 ML VIAL IV PUSH (10:00)
[2021-08-16] MEDS: LACTATED RINGERS 1,000 ML 150 ML IV CONT (12:43)
--- NOTE | 2021-08-16 12:54 | WPDANESEPPF ---
Anes - Initial Pre Proc Eval Procedure: Operation Date: 08/16/21 14:00 Proposed Procedures p Esophagogastroduodenoscopy - Josue Soliz MD Date/Time: 08/16/21 12:54 Surgeon: Brittany Zamudio PA-C Pre Op Diagnosis: Pancreatitis, AMS Patient Data Age: 80 Gender: M Height: 1.75 m Weight: 90 kg Last Vital Signs Temp 36.6 C 08/16/21 12:39 Pulse 73 08/16/21 12:39 Resp 16 08/16/21 12:39 BP 166/95 H 08/16/21 12:39 Pulse Ox 97 08/16/21 12:39 Allergies Allergy/AdvReac Type Severity Reaction Status Date / Time Penicillins Allergy Severe turns red Verified 08/16/21 12:37 morphine Allergy Mild Vomiting Verified 08/16/21 12:37 ticagrelor Allergy Mild rash Verified 08/16/21 12:37 Home Medications Medication Instructions Recorded Confirmed Type aspirin 81 mg tablet,delayed 81 mg PO DAILY 07/03/19 08/13/21 History release atorvastatin 80 mg tablet 80 mg PO DAILY 07/03/19 08/13/21 History clopidogrel 75 mg tablet 75 mg PO BID PRN 07/03/19 08/13/21 History diclofenac sodium 75 mg 75 mg PO BID PRN 07/03/19 08/13/21 History tablet,delayed release gabapentin 600 mg tablet 600 mg PO BID 07/03/19 08/13/21 History lisinopril 10 mg tablet 20 mg PO DAILY 07/03/19 08/13/21 History metoprolol succinate 25 mg 12.5 mg PO DAILY tablet 07/03/19 08/13/21 History tablet,extended release 24 hr finasteride 5 mg tablet 5 mg PO DAILY 01/10/20 08/13/21 History tamsulosin 0.4 mg capsule 0.4 mg PO DAILY 01/10/20 08/13/21 History venlafaxine 150 mg 150 mg PO DAILY #90 cap 08/02/21 08/13/21 Rx capsule,extended release 24 hr omeprazole 20 mg PO DAILY #14 cap 08/11/21 08/13/21 Rx citalopram 40 mg PO DAILY 08/13/21 08/13/21 History Laboratory Tests 08/16/21 08/16/21 07:47 07:47 WBC 8.8 K/mm3 K/mm3 (4.5-10.0) RBC 4.45 M/mm3 L M/mm3 (4.6-6.20) Hgb 13.8 g/dL L g/dL (14.0-18.0) Hct 39.5 % L % (42.0-52.0) MCV 88.8 fl fl (80-100) MCH 31.0 pg pg (26-34) MCHC 34.9 g/dl g/dl (32-36) RDW 12.8 % % (11.5-14.5) Plt Count 176 k/mm3 k/mm3 (150-375) MPV 10.7 fl H fl (7.4-10.4) Sodium 139 mmol/L mmol/L (137-145) Potassium 3.5 mmol/L mmol/L (3.4-5.0) Chloride 107 mmol/L mmol/L (98-107) Carbon Dioxide 27 mmol/L mmol/L (22-30) Anion Gap 5 mmol/L L mmol/L (8-16) BUN 8 mg/dL L mg/dL (9-20) Creatinine 1.00 mg/dL mg/dL (0.7-1.3) Estim Creat Clear Calc 54 ml/min ml/min Estimated GFR > 60 (59 - ) Glucose 109 mg/dL mg/dL (65-110) Calcium 9.1 mg/dL mg/dL (8.4-10.2) Patient hx anesthesia problems: none Family hx anesthesia problems: none Results Review: All pre-operative results and documents have been reviewed as part of the pre-operative evaluation. [facility] Past Medical History Medical History BPH (benign prostatic hyperplasia) Depression Essential (primary) hypertension Hyperlipidemia Neuropathy Surgical History Surgical History Hx laparoscopic cholecystectomy Hx of heart artery stent Family History Family History Sibling Family history of malignant neoplasm of gastrointestinal tract Patient's brother is Carcinoma of colon Family history of malignant neoplasm of kidney Social History Social History Social History: The patient stated that he is . He stated that he had 1 daughter that . He lives Alone. He quit smoking 30 years ago. He admits to using marijuana. He is retired from the [employer]. During our conversation he stated that his son is calling however he could not tell me how many other children he had. He states he does not believe he has a durable power commonwealth attorney for healthcare.
[2021-08-16] MEDS: BENZOCAINE (*SP) 60 ML SPRAY CAN (HURRICAINE) 1 SPRAY MUCOUS MEM (13:21)
--- NOTE | 2021-08-16 14:28 | PM.DS ---
DS: Admitting Diagnosis Discharge Date 08/16/2021 Admitting Diagnosis Altered mental status DS: Discharge Diagnosis Discharge Diagnosis (1) Diarrhea: Qualifiers: Diarrhea type: unspecified type Qualified Code(s): R19.7 - Diarrhea, unspecified Code(s): R19.7 - Diarrhea, unspecified Status: Acute Assessment and Plan: Resolved. Stool cultures negative. Seen in consultation by gastroenterology. (2) Altered mental status: Code(s): R41.82 - Altered mental status, unspecified Status: Acute Assessment and Plan: Resolved. He was A&Ox4 on my encounter. Etiology unclear, may be due to dehydration secondary to acute GI illness with N/V/D. CT head negative. MRI with no acute findings. Carotid doppler <50% stenosis bilaterally. He was adequately rehydrated and returned to baseline. (3) Acute pancreatitis: Qualifiers: Acute pancreatitis complication: unspecified Pancreatitis type: unspecified pancreatitis type Qualified Code(s): K85.90 - Acute pancreatitis without necrosis or infection, unspecified Code(s): K85.90 - Acute pancreatitis without necrosis or infection, unspecified Status: Acute Assessment and Plan: Ruled out. CT abdomen/pelvis negative. Elevated lipase likely related to vomiting. Lipase levels normalized and he tolerated his diet. LFTs and total bili normal. (4) Depression: Code(s): F32.9 - Major depressive disorder, single episode, unspecified Status: Chronic Assessment and Plan: Home medications show both citalopram and venlafaxine at fairly high doses (40mg and 150mg, respectively), though he reported he recently stopped taking both of these medications. Citalopram continued. Venlafaxine held. Follow-up with PCP or psychiatrist to discuss long-term dosing (5) Neuropathy: Code(s): G62.9 - Polyneuropathy, unspecified Status: Chronic Assessment and Plan: Continue gabapentin (6) Essential (primary) hypertension: Code(s): I10 - Essential (primary) hypertension Status: Chronic Assessment and Plan: Continue with home medications. BP adequately controlled. (7) BPH (benign prostatic hyperplasia): Code(s): N40.0 - Benign prostatic hyperplasia without lower urinary tract symptoms Status: Chronic Assessment and Plan: Continue tamsulosin and finasteride (8) CAD (coronary artery disease): Code(s): I25.10 - Atherosclerotic heart disease of [place] coronary artery without angina pectoris Status: Acute Assessment and Plan: History of 2 cardiac stents in the past. No acute issues and he was asymtomatic. Continue home regimen. (9) Acute urinary retention: Code(s): R33.8 - Other retention of urine Status: Acute Assessment and Plan: Episode of acute urinary retention, etiology unclear. Kaur catheter initiated. Tamsulosin and finasteride continued. Patient successfully completed voiding trial and was urinating independently at time of discharge. 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 Started on protonix 40 mg daily which he will continue. NSAIDs discontinued. DS: Summary Hospital Course Hospital Course: Date of admission: 08/13/2021 Date of discharge: 08/16/2021 Gustavo Don is a 81-year-old male with a history hypertension, BPH, hyperlipidemia, and depression who presented to the emergency department on 08/13/2019 to due to concerns for altered mental status. On presentation to the emergency department, his blood pressure was slightly elevated with additional vital signs stable, he was afebrile, WBC 12.7, potassium 3.2, additional CBC and BMP unremarkable, head CT showed normal aging brain, and CT abdomen/pelvis showed normal
== END 2021-08-16 17:16 | disposition home or self-care (01) ==
LOC: ANHED 14:15 → ANH2MED 17:14
PROVIDERS: Emergency Medicine; Internal Medicine; Internal Medicine Gastroenterology; Nurse Practitioner; Physician Assistant; Admitting Provider Internal Medicine; Emergency Provider Emergency Medicine; PCP Internal Medicine; Visit Provider Internal Medicine
PROC: 0DJ08ZZ Inspection of Upper Intestinal Tract, Via Natural or Artificial Opening Endoscopic (ICD-10-PCS; CPT 43235; principal; 2021-08-16 14:00)
DX: K85.90 Acute pancreatitis without necrosis or infection, unspecified (principal); G93.40 Encephalopathy, unspecified; R19.7 Diarrhea, unspecified; R11.0 Nausea; K22.70 Barrett's esophagus without dysplasia; K29.70 Gastritis, unspecified, without bleeding; F32.9 Major depressive disorder, single episode, unspecified; R33.8 Other retention of urine; I10 Essential (primary) hypertension; I25.10 Atherosclerotic heart disease of native coronary artery without angina pectoris; E78.5 Hyperlipidemia, unspecified; R63.4 Abnormal weight loss; G62.9 Polyneuropathy, unspecified; N40.0 Benign prostatic hyperplasia without lower urinary tract symptoms; I65.23 Occlusion and stenosis of bilateral carotid arteries; F12.90 Cannabis use, unspecified, uncomplicated; Z20.822 Contact with and (suspected) exposure to COVID-19; Z95.5 Presence of coronary angioplasty implant and graft; Z87.891 Personal history of nicotine dependence; Z79.82 Long term (current) use of aspirin; Z79.02 Long term (current) use of antithrombotics/antiplatelets; Z79.899 Other long term (current) drug therapy
CPT/HCPCS: 43239; 36415; 70450; 70553; 74177; 80048; 80053; 80069; 80307; 81001; 82728; 83605; 83615; 83690; 83735; 84443; 85025; 85027; 85610; 85730; 87045; 87081; 87269; 87324; 87427; 88305; 89055; 93005; 93306; 93880; 96361; 96365; 96366; 96375; 96376; 97110; 97116; 97161; 97165; 97535; 99285; A9270; A9577; C9803; G0378; J2704; J3480; J7030; J7120; Q9967; U0003; U0005

== ENCOUNTER 2023-10-05 09:44 | Emergency (ER) | payer MEDICARE, SELFPAY ==
[2023-10-05] VITALS (9 sets, daily range): BP systolic 137–165; BP diastolic 86–149; PULSE 74–103; RESP 10–22; TEMP 36.6–37.1; O2SAT 95–99
--- NOTE | ~2023-10-05 | XR_ITS ---
EXAMINATION: XR chest 1V portable INDICATION: Upper respiratory infection, cough TECHNIQUE: Portable AP chest at 1022 hours COMPARISON: 11/14/2017 FINDINGS: The lungs are free of acute opacities. No pleural effusion or pneumothorax. The cardiomedia stinal silhouette is normal. IMPRESSION: 1. No acute cardiopulmonary abnormality. Reviewed, dictated and finalized at location L. COLLECTOR
--- NOTE | 2023-10-05 09:51 | ECG_ITS ---
Measurements Intervals [place] Rate: 79 P: 72 CA: 131 QRS: 52 QRSD: 84 T: 48 QT: 380 QTc: 438 Interpretive Statements SINUS RHYTHM INCOMPLETE RIGHT BUNDLE BRANCH BLOCK EARLY PRECORDIAL R/S TRANSITION ST-T WAVE ABNORMALITY IN ANTEROLAT/INF LEADS- CONSIDER ISCHEMIA ABNORMAL ECG COMPARED TO ECG 08/13/2021 12:49:04 NO SIGNIFICANT CHANGES Electronically Signed On 10-05-2023 10:36:50 [employer] DES[employer] by Delvin Schrader D.O.
--- NOTE | 2023-10-05 10:10 | ED.SOB ---
HPI - SOB/Dyspnea General Chief Complaint: Shortness of Breath/Dyspnea Stated Complaint: DYSPNEA Time Seen by Provider: 10/05/23 09:54 Source: patient Mode of arrival: ambulatory Limitations: no limitations History of Present Illness HPI Narrative: Gustavo is a 83-year-old male patient presenting to the ER today with complaints of shortness of breath and productive cough for the past few days. Reports that the cough is very raspy. Denies any known fever or chills. Denies any chest pain. Former smoker but still vapes. Also smokes marijuana. Reports that the symptoms have been going on for 1.5 weeks. Related Data Home Medications Medication Instructions Recorded Confirmed atorvastatin 80 mg tablet 80 mg PO DAILY 07/03/19 09/13/23 clopidogrel 75 mg tablet 75 mg PO BID PRN Pain 07/03/19 10/05/23 lisinopril 10 mg tablet 20 mg PO DAILY 07/03/19 10/05/23 metoprolol succinate 25 mg 12.5 mg PO DAILY 07/03/19 10/05/23 tablet,extended release 24 hr Allergies Allergy/AdvReac Type Severity Reaction Status Date / Time No Known Allergies Allergy Verified 10/05/23 10:31 Review of Systems Review of Systems: Pertinent positives per HPI. Patient denies any fever, chills, rash, headache, visual changes, dizziness, runny nose, sore throat, chest pain, palpitations, nausea, vomiting, diarrhea, constipation, abdominal pain, or any urinary issues. [facility] Past Medical History Medical History BPH (benign prostatic hyperplasia) Essential (primary) hypertension Hyperlipidemia Neuropathy Surgical History Surgical History Hx laparoscopic cholecystectomy Hx of heart artery stent Family History Family History Sibling Family history of malignant neoplasm of gastrointestinal tract Patient's brother is Carcinoma of colon Family history of malignant neoplasm of kidney Social History Social History Social History: The patient stated that he is . He stated that he had 1 daughter that . He lives Alone. He quit smoking 30 years ago. He admits to using marijuana. He is retired from the [employer]. During our conversation he stated that his son is calling however he could not tell me how many other children he had. He states he does not believe he has a durable power compliance attorney for healthcare. Patient denies any alcohol. Code status full code Smoking packs per day: 1 Smoking cigarettes per day: 20.0 Years smoked: 35 Smoking pack-years: 35.00 Smoking status: Former smoker Second hand tobacco smoke exposure: No Smoking end date: 07/31/85 Alcohol intake: never Substance use: current Substance use type: marijuana Last use: 08/12/21 Lack of Transportation: No Lack of Food: Never True Current Housing: I Have Housing Concerned About Future Housing: No Difficulty Paying Gas/Electric Bills: No Difficulty Paying for Meds: No Currently Unemployed: No Education: High School Diploma/GED Difficulty w/ Childcare or Family Care: No Spiritual care concerns: No Comments At the time of my signature, I reviewed and agree with the nursing past medical, surgical, social, and family history. There is no relevant family history pertinent to the patient complaint. Exam Narrative: General: Well-developed, well nourished, mildly increased work to breathe noted Head: Normocephalic, atraumatic Eyes: Pupils equally round and reactive to light bilaterally, EOM intact, sclera and conjunctive clear, no discharge, lids normal Ears: TMs intact and clear, ear canals clear, no drainage, grossly hearing normal. Nose: Nares patent, clear discharge, no inflammation, no sinus tenderness. Mouth: Oropharynx without lesions or masses, good dentition, MMM.
[2023-10-05 10:16] LABS: Basophils Percent Auto 0.1 % (0.2-1.2); Eosinophils Percent Auto 0.4 % (0-4.4); Hematocrit 43.8 % (42.0-52.0); Hemoglobin 14.7 g/dL (14.0-18.0); Immature Granulocyte Absolute 0.02 K/mm3 (0.00-0.031); Immature Granulocyte Percent A 0.3 % (0-0.5); Immature Platelet Fraction Pct 4.6 % (0.9-11.2); Lymphocytes Absolute Auto 1.08 K/mm3 (0.9-3.2); Lymphocytes Percent Auto 14.8 % (18.3-44.2); Mean Corpuscular HGB Conc 33.6 g/dl (32-36); Mean Corpuscular Volume 86.4 fl (80-100); Mean Platelet Volume 10.9 fl (7.4-10.4); Monocytes Absolute Auto 0.4 K/mm3 (0.1-0.6); Monocytes Percent Auto 5.5 % (2.6-8.5); Neutrophils Absolute Auto 5.8 K/mm3 (1.3-6.7); Neutrophils Percent Auto 78.9 % (45.5-73.1); Platelet Count Result 109 k/mm3 (150-375); Red Blood Count 5.07 M/mm3 (4.6-6.20); Red Cell Distribution Width 13.2 % (11.5-14.5); White Blood Count 7.3 K/mm3 (4.5-10.0)
[2023-10-05 10:24] LABS: Alanine Aminotransferase 18 U/L (6-50); Alkaline Phosphatase 113 U/L (38-126); Anion Gap 11 mmol/L (8-16); Aspartate Amino Transferase 25 U/L (17-59); Bilirubin,Total 1.2 mg/dL (0.2-1.3); Blood Urea Nitrogen 14 mg/dL (9-20); Calcium 8.9 mg/dL (8.4-10.2); Carbon Dioxide 20 mmol/L (22-30); Chloride 109 mmol/L (98-107); Estimated CRCL calculation 50 ml/min; Estimated Glomerular Filt Rate > 60; Glucose 111 mg/dL (65-110); Potassium 3.6 mmol/L (3.4-5.0); Sodium 140 mmol/L (137-145)
[2023-10-05 10:25] LABS: Prothrombin Time 13.9 Seconds (11.1-14.7)
[2023-10-05 10:26] LABS: Partial Thromboplastin Time 29.3 SECONDS (22.3-36.8)
[2023-10-05 10:35] LABS: NT Pro B Type Natriuretic Pept 235 pg/mL (19.9-100); Troponin I < 0.012 ng/mL (0.000-0.034)
[2023-10-05 10:51] LABS: Influenza A QL RT-PCR Positive (Negative); Influenza B QL RT-PCR Negative (Negative); RSV RNA, RT-PCR Negative (Negative); SARS-CoV-2 RNA PCR Negative (Negative)
== END 2023-10-05 12:30 | disposition home or self-care (01) ==
PROVIDERS: Student in an Organized Health Care Education/Training Program; Emergency Provider Nurse Practitioner Family; PCP Internal Medicine
DX: J10.1 Influenza due to other identified influenza virus with other respiratory manifestations (principal); J40 Bronchitis, not specified as acute or chronic; I10 Essential (primary) hypertension; E78.5 Hyperlipidemia, unspecified; Z79.899 Other long term (current) drug therapy; Z20.822 Contact with and (suspected) exposure to COVID-19; Z87.891 Personal history of nicotine dependence
CPT/HCPCS: 36415; 71045; 80053; 83880; 84484; 85025; 85055; 85610; 85730; 87637; 93005; 99284